=== PATIENT | female | born 1985 | race Hispanic/Latino ===

== ENCOUNTER 2018-10-11 12:18 | Emergency (ER) | payer OTHER ==
[~2018-10-11] VITALS: Ht 157.5 cm; Wt 95.0 kg
[~2018-10-11 12:18] MED LIST: CIPRO500 MG OR; COMBIVENT IN; MEDDOSEPAK OR; NO HOME MEDS; PREVACID30 M2 PO; VENTOLIN HFA IN
[2018-10-11] MEDS ORDERED: FLOVENT HF110 MCG/AC IN (12:29)
[2018-10-11] MEDS ORDERED: ALBUTEROL SUL0.083 % IN (12:30)
[2018-10-11] MEDS ORDERED: MONTELUKAST SOD10 MG PO (13:09)
[2018-10-11] MEDS ORDERED: BUPROPION HCL150 MG PO (13:09)
[2018-10-11] MEDS ORDERED: PROAIR HFA108 MCG/AC IN (13:09)
[2018-10-11 13:28] LABS: INFLUENZA A NONE DETECTED (NONE DETECT); INFLUENZA B NONE DETECTED (NONE DETECT)
[2018-10-11] MEDS ORDERED: AMOXICILLIN500 MG PO (13:38)
[2018-10-11 13:50] VITALS: BP 135/77
== END 2018-10-11 13:50 | disposition home or self-care (01) ==
LOC: ED 12:18
PROVIDERS: Family Medicine
DX: J02.9 Acute pharyngitis, unspecified (principal); R50.9 Fever, unspecified; R05 Cough

== ENCOUNTER 2019-02-20 09:22 | Emergency (ER) | payer OTHER ==
[~2019-02-20] VITALS: Ht 157.5 cm; Wt 97.3 kg
[~2019-02-20 09:22] MED LIST changes: +ALBUTEROL SUL0.083 % IN; +AMOXICILLIN500 MG PO; +BUPROPION HCL150 MG PO; +FLOVENT HF110 MCG/AC IN; +MONTELUKAST SOD10 MG PO; +PROAIR HFA108 MCG/AC IN
[2019-02-20 10:42] LABS: HEMOGLOBIN 13.1 g/dl (12.0-16.0); IMMATURE GRANULOCYTES 0.4 % (0.0-5.0); MEAN CELL VOLUME 87.5 fL CALC (80.0-100.0); MEAN CORPUSCULAR HGB 28.7 pG CALC (26.0-32.0); MEAN CORPUSCULAR HGB CONC 32.8 g/L CALC (32.0-36.0); NEUT# 4.82 thou/uL (2.00-7.15); RED BLOOD COUNT 4.57 mill/uL (4.20-5.60); RED CELL DISTRI WIDTH 13.3 % (11.5-15.5)
[2019-02-20 10:52] LABS: ALBUMIN 3.9 g/dL (3.2-5.0); ALKALINE PHOSPHATASE 68 u/l (38-126); ANION GAP 13 (6-22 (CALC)); BILIRUBIN, TOTAL 0.3 mg/dL (0.0-1.4); BUN 19 mg/dL (7-17); BUN/CREATININE RATIO 33 (12-20 (CALC)); CARBON DIOXIDE 27 mmol/l (22-30); CHLORIDE 103 mmol/l (95-108); CREATININE 0.6 mg/dL (0.5-1.0); GFR > 60 ML/MIN (>=60 (CALC)); GFR FOR AFR.AMER. > 60 ML/MIN (>=60 (CALC)); SGOT/AST 16 u/l (14-36); SODIUM 140 mmol/l (137-146); TOTAL PROTEIN 6.9 g/dL (6.3-8.2)
[2019-02-20] MEDS ORDERED: MEDDOSEPAK PO (11:02)
[2019-02-20] MEDS ORDERED: TORADOL PO (11:02)
[2019-02-20 11:34] VITALS: BP 116/75
== END 2019-02-20 11:45 | disposition home or self-care (01) ==
LOC: ED 09:22
PROVIDERS: Emergency Medicine
DX: M25.572 Pain in left ankle and joints of left foot (principal); M25.571 Pain in right ankle and joints of right foot; R22.43 Localized swelling, mass and lump, lower limb, bilateral

== ENCOUNTER 2019-05-08 20:51 | Emergency (ER) | payer OTHER ==
[~2019-05-08] VITALS: Ht 157.5 cm; Wt 105.0 kg
[~2019-05-08 20:51] MED LIST changes: +MEDDOSEPAK PO; +TORADOL PO
[2019-05-08 22:45] LABS: HEMATOCRIT 39.1 % (37.0-47.0); HEMOGLOBIN 12.8 g/dl (12.0-16.0); IMMATURE GRANULOCYTES 0.5 % (0.0-5.0); MEAN CELL VOLUME 86.1 fL CALC (80.0-100.0); MEAN CORPUSCULAR HGB 28.2 pG CALC (26.0-32.0); MEAN CORPUSCULAR HGB CONC 32.7 g/L CALC (32.0-36.0); NEUT# 5.86 thou/uL (2.00-7.15); RED BLOOD COUNT 4.54 mill/uL (4.20-5.60); RED CELL DISTRI WIDTH 13.3 % (11.5-15.5)
[2019-05-08 23:02] LABS: ALBUMIN 4.1 g/dL (3.2-5.0); ALKALINE PHOSPHATASE 84 u/l (38-126); ANION GAP 14 (6-22 (CALC)); BILIRUBIN, TOTAL 0.2 mg/dL (0.0-1.4); BUN 12 mg/dL (7-17); BUN/CREATININE RATIO 20 (12-20 (CALC)); CARBON DIOXIDE 22 mmol/l (22-30); CHLORIDE 108 mmol/l (95-108); CREATININE 0.6 mg/dL (0.5-1.0); GFR > 60 ML/MIN (>=60 (CALC)); GFR FOR AFR.AMER. > 60 ML/MIN (>=60 (CALC)); POTASSIUM 3.9 mmol/l (3.5-5.1); SGOT/AST 14 u/l (14-36); SODIUM 141 mmol/l (137-146)
[2019-05-08 23:24] LABS: URINE BILIRUBIN - DIPSTICK NEGATIVE (NEGATIVE); URINE BLOOD DIPSTICK NEGATIVE (NEGATIVE); URINE COLOR YELLOW; URINE GLUCOSE - DIPSTICK NEGATIVE (NEGATIVE); URINE KETONE NEGATIVE (NEGATIVE); URINE LEUK ESTERASE NEGATIVE (NEGATIVE); URINE NITRITE - DIPSTICK NEGATIVE (Negative); URINE PH 6.5 (4.5-8.0); URINE PROTEIN - DIPSTICK NEGATIVE (NEG-TRACE)
[2019-05-08 23:30] LABS: BARBITURATES NEGATIVE (NEGATIVE); COCAINE NEGATIVE (NEGATIVE); METHADONE NEGATIVE (NEGATIVE); OXCYCODONE NEGATIVE (NEGATIVE); TETRAHYDROCANNABIONOL NEGATIVE (NEGATIVE); TRICYLIC ANTIDEPRESSANTS NEGATIVE (NEGATIVE)
[2019-05-08] MEDS ORDERED: FIORICET PO (23:40)
[2019-05-08] MEDS ORDERED: MEDDOSEPAK PO (23:40)
[2019-05-08] MEDS ORDERED: ZOFRAN ODT4 MG PO (23:40)
[2019-05-08] MEDS ORDERED: ANTIVERT PO (23:40)
[2019-05-09 00:15] VITALS: BP 120/76
== END 2019-05-09 00:38 | disposition home or self-care (01) ==
LOC: ED 20:51
PROVIDERS: Emergency Medicine
DX: R42 Dizziness and giddiness (principal); R11.2 Nausea with vomiting, unspecified; H53.149 Visual discomfort, unspecified

== ENCOUNTER 2020-11-19 07:07 | Emergency (ER) | payer OTHER ==
[~2020-11-19] VITALS: Ht 157.5 cm; Wt 120.0 kg
[~2020-11-19 07:07] MED LIST changes: +ANTIVERT PO; +FIORICET PO; +ZOFRAN ODT4 MG PO
[2020-11-19] MEDS ORDERED: PROAIR HFA108 MCG/AC PO (07:30)
[2020-11-19] MEDS ORDERED: FLOXIN OTIC0.3 % AD ×2 (07:30→08:08)
[2020-11-19] MEDS ORDERED: FLOVENT DI100 MCG/BL PO (07:30)
[2020-11-19] MEDS ORDERED: CIPROFLOXACN500 MG PO (08:02)
[2020-11-19 08:17] VITALS: BP 147/82
== END 2020-11-19 08:21 | disposition home or self-care (01) ==
LOC: ED 07:07
DX: H60.91 Unspecified otitis externa, right ear (principal); F32.9 Major depressive disorder, single episode, unspecified; J45.909 Unspecified asthma, uncomplicated; Z20.828 Contact with and (suspected) exposure to other viral communicable diseases

== ENCOUNTER 2021-09-25 22:17 | Emergency (ER) | payer OTHER ==
[~2021-09-25] VITALS: Ht 157.5 cm; Wt 104.0 kg
[~2021-09-25 22:17] MED LIST changes: +CIPROFLOXACN500 MG PO; +FLOVENT DI100 MCG/BL PO; +FLOXIN OTIC0.3 % AD; +PROAIR HFA108 MCG/AC PO
[2021-09-25 23:44] LABS: ALKALINE PHOSPHATASE 64 u/l (38-126); ANION GAP 14 (6-22 (CALC)); BILIRUBIN, TOTAL 0.4 mg/dL (0.0-1.4); BUN 18 mg/dL (7-17); BUN/CREATININE RATIO 23 (12-20 (CALC)); CARBON DIOXIDE 23 mmol/l (22-30); CHLORIDE 105 mmol/l (95-108); CREATININE 0.8 mg/dL (0.5-1.0); GFR > 60 ML/MIN (>=60 (CALC)); GFR FOR AFR.AMER. > 60 ML/MIN (>=60 (CALC)); MYOGLOBIN 31 ng/mL (0 - 62); SGOT/AST 24 u/l (14-36); SODIUM 138 mmol/l (137-146); TOTAL PROTEIN 7.4 g/dL (6.3-8.2)
[2021-09-26 00:03] LABS: HEMATOCRIT 39.3 % (37.0-47.0); HEMOGLOBIN 12.7 g/dl (12.0-16.0); IMMATURE GRANULOCYTES 0.2 % (0.0-5.0); MEAN CELL VOLUME 86.4 fL CALC (80.0-100.0); MEAN CORPUSCULAR HGB 27.9 pG CALC (26.0-32.0); MEAN CORPUSCULAR HGB CONC 32.3 g/dL CAL (32.0-36.0); NEUT# 7.29 thou/uL (2.00-7.15); RED BLOOD COUNT 4.55 mill/uL (4.20-5.60); RED CELL DISTRI WIDTH 14.5 % (11.5-15.5)
[2021-09-26] MEDS ORDERED: ZPAK PO (00:09)
[2021-09-26] MEDS ORDERED: MEDDOSEPAK PO (00:09)
[2021-09-26] MEDS ORDERED: ROBITUSSIN AC10 ML PO (00:09)
[2021-09-26 00:18] VITALS: BP 122/70
== END 2021-09-26 00:18 | disposition home or self-care (01) ==
LOC: ED 22:17
PROVIDERS: Emergency Medicine
DX: J06.9 Acute upper respiratory infection, unspecified (principal); J45.909 Unspecified asthma, uncomplicated; F32.A Depression, unspecified; Z20.822 Contact with and (suspected) exposure to COVID-19

== ENCOUNTER 2022-03-23 08:51 | Emergency (ER) | payer OTHER ==
[~2022-03-23] VITALS: Ht 157.5 cm; Wt 88.6 kg
[~2022-03-23 08:51] MED LIST changes: +ROBITUSSIN AC10 ML PO; +ZPAK PO
[2022-03-23] MEDS ORDERED: DICLOFENAC SODI75 MG PO (09:28)
[2022-03-23] MEDS ORDERED: CELEXA20 M1 PO (09:28)
[2022-03-23] MEDS ORDERED: TOPIRAMATE50 MG PO (09:29)
[2022-03-23] MEDS ORDERED: PHENTERMINE15 MG PO (09:29)
[2022-03-23 09:41] LABS: URINE BILIRUBIN - DIPSTICK NEGATIVE (NEGATIVE); URINE BLOOD DIPSTICK NEGATIVE (NEGATIVE); URINE COLOR YELLOW; URINE GLUCOSE - DIPSTICK NEGATIVE (NEGATIVE); URINE KETONE NEGATIVE (NEGATIVE); URINE LEUK ESTERASE NEGATIVE (NEGATIVE); URINE PROTEIN - DIPSTICK NEGATIVE (NEG-TRACE); URINE UROBILINOGEN - DIPSTICK 0.2 E.U./dL (0.2)
[2022-03-23 09:44] LABS: URINE NITRITE - DIPSTICK NEGATIVE (Negative)
[2022-03-23 10:01] LABS: HEMATOCRIT 41.3 % (37.0-47.0); HEMOGLOBIN 13.4 g/dl (12.0-16.0); IMMATURE GRANULOCYTES 0.1 % (0.0-5.0); MEAN CELL VOLUME 88.4 fL CALC (80.0-100.0); MEAN CORPUSCULAR HGB 28.7 pG CALC (26.0-32.0); MEAN CORPUSCULAR HGB CONC 32.4 g/dL CAL (32.0-36.0); NEUT# 4.93 thou/uL (2.00-7.15); RED BLOOD COUNT 4.67 mill/uL (4.20-5.60); RED CELL DISTRI WIDTH 14.1 % (11.5-15.5)
[2022-03-23 10:43] LABS: ALBUMIN 3.7 g/dL (3.2-5.0); ALKALINE PHOSPHATASE 58 u/l (38-126); ANION GAP 11 (6-22 (CALC)); BUN 13 mg/dL (7-17); BUN/CREATININE RATIO 20 (12-20 (CALC)); CARBON DIOXIDE 26 mmol/l (22-30); CHLORIDE 107 mmol/l (95-108); CREATININE 0.6 mg/dL (0.5-1.0); GFR > 60 ML/MIN (>=60 (CALC)); GFR FOR AFR.AMER. > 60 ML/MIN (>=60 (CALC)); LIPASE 57 u/l (23-300); POTASSIUM 4.2 mmol/l (3.5-5.1); SGOT/AST 17 u/l (14-36); SODIUM 139 mmol/l (137-146); TOTAL PROTEIN 6.8 g/dL (6.3-8.2)
[2022-03-23 10:45] LABS: BILIRUBIN, TOTAL 0.2 mg/dL (0.0-1.4)
[2022-03-23 12:26] VITALS: BP 135/83
== END 2022-03-23 12:35 | disposition home or self-care (01) ==
LOC: ED 08:51
PROVIDERS: Internal Medicine
DX: R10.2 Pelvic and perineal pain (principal); J45.909 Unspecified asthma, uncomplicated; F32.A Depression, unspecified

== ENCOUNTER 2023-12-22 12:18 | Emergency (ER) | payer BC ==
[~2023-12-22] VITALS: Ht 157.5 cm; Wt 92.5 kg
[~2023-12-22 12:18] MED LIST changes: +CELEXA20 M1 PO; +DICLOFENAC SODI75 MG PO; +PHENTERMINE15 MG PO; +TOPIRAMATE50 MG PO
[2023-12-22] MEDS ORDERED: TAM75CAP PO (14:06)
[2023-12-22] MEDS ORDERED: BENZONATATE200 MG PO (14:06)
[2023-12-22 14:17] VITALS: BP 120/93
== END 2023-12-22 14:29 | disposition home or self-care (01) | DRG 195 ==
LOC: ED 12:18
DX: J10.1 Influenza due to other identified influenza virus with other respiratory manifestations (principal)

== ENCOUNTER 2023-12-25 11:54 | Emergency (ER) | payer BC ==
[~2023-12-25] VITALS: Ht 157.5 cm; Wt 68.0 kg
[~2023-12-25 11:54] MED LIST changes: +BENZONATATE200 MG PO; +TAM75CAP PO
[2023-12-25 12:00] VITALS: BP 145/100
[2023-12-25 12:15] VITALS: BP 128/91
[2023-12-25 12:31] VITALS: BP 141/87
[2023-12-25 12:45] VITALS: BP 135/95
== END 2023-12-25 12:57 | disposition home or self-care (01) | DRG 153 ==
LOC: ED 11:54
DX: J06.9 Acute upper respiratory infection, unspecified (principal); J45.909 Unspecified asthma, uncomplicated

== ENCOUNTER 2024-06-12 20:42 | Emergency (ER) | payer BC ==
[~2024-06-12] VITALS: Ht 157.5 cm; Wt 91.0 kg
[2024-06-12 21:37] VITALS: BP 117/74
== END 2024-06-12 21:37 | disposition left against medical advice (07) | DRG 951 ==
LOC: ED 20:42 → LWOBS 21:37
DX: Z53.21 Procedure and treatment not carried out due to patient leaving prior to being seen by health care provider (principal)